=== PATIENT | male | born 1945 | race Caucasian/White ===

== ENCOUNTER → 2018-04-20 10:11 | Outpatient (CLI) | payer MEDICARE, SELFPAY | PROVIDERS: PCP Internal Medicine; Visit Provider Urology | DX: C61 Malignant neoplasm of prostate (principal) | CPT/HCPCS: 36415; 84153 ==

== ENCOUNTER → 2018-10-24 12:20 | Outpatient (CLI) | payer MEDICARE, SELFPAY ==
[2018-10-24 13:18] LABS: Prostate Specific Antigen 4.66 ng/mL (0.10-4.00)
== END ==
PROVIDERS: PCP Internal Medicine; Visit Provider Urology
DX: C61 Malignant neoplasm of prostate (principal)
CPT/HCPCS: 36415; 84153

== ENCOUNTER → 2019-05-03 11:50 | Outpatient (CLI) | payer MEDICARE, SELFPAY ==
[2019-05-03 14:29] LABS: Prostate Specific Antigen 8.59 ng/mL (0.10-4.00)
== END ==
PROVIDERS: PCP Internal Medicine; Visit Provider Urology
DX: C61 Malignant neoplasm of prostate (principal)
CPT/HCPCS: 36415; 84153

== ENCOUNTER → 2019-08-17 09:59 | Outpatient (CLI) | payer MEDICARE, SELFPAY ==
[2019-08-17 11:38] LABS: Prostate Specific Antigen 7.05 ng/mL (0.10-4.00)
== END ==
PROVIDERS: Family Provider Internal Medicine; PCP Internal Medicine; Visit Provider Urology
DX: C61 Malignant neoplasm of prostate (principal)
CPT/HCPCS: 36415; 84153

== ENCOUNTER → 2020-10-16 19:21 | Outpatient (ROUT) | payer MEDICARE, SELFPAY ==
[2020-10-16 19:45] LABS: Aspartate Aminotransferase 34 IU/L (17-59); BUN Creatinine Ratio 12.8 (6-22); Blood Urea Nitrogen 14 mg/dL (9-20); Calcium 9.6 mg/dL (8.4-10.2); Carbon Dioxide 27 mmol/L (22-32); Chloride 106 mmol/L (98-107); Cholesterol 165 mg/dL (140-199); Estimated Glomerular Filt Rate > 60.0 mL/min (>60); Glucose 115 mg/dL (80-110); HDL Cholesterol 44 mg/dL (40-60); HEMOLYSIS 16 (0-50); LDL Cholesterol Calculated 84 mg/dL (<100); Potassium 4.5 mmol/L (3.4-5.1); Sodium 137 mmol/L (137-145); Triglycerides 183 mg/dL (35-150)
[2020-10-16 19:47] LABS: Hemoglobin A1C% w Est Avg Glu 6.1 % (4.0-6.0)
== END ==
PROVIDERS: Family Provider Internal Medicine; PCP Internal Medicine; Visit Provider Internal Medicine
DX: R73.01 Impaired fasting glucose (principal)
CPT/HCPCS: 80048; 80061; 83036; 84450

== ENCOUNTER → 2022-01-18 10:55 | Outpatient (CLI) | payer MEDICARE, SELFPAY ==
[2022-01-18 13:00] LABS: Hematocrit 42.6 % (41-53); Hemoglobin 15.1 g/dL (13.5-17.5); Mean Corpuscular HGB Conc 35.4 % (30-36); Mean Corpuscular Hemoglobin 34.2 PG (26-34); Mean Corpuscular Volume 96.8 fL (80-100); Platelet Count 208 X10^3/uL (150-400); Red Cell Distribution Width 12.9 % (11.6-14.8); White Blood Cell Count 6.6 X10^3/uL (4.5-11.0)
[2022-01-18 13:47] LABS: HEMOLYSIS < 15 (0-50); Potassium 4.3 mmol/L (3.4-5.1)
[2022-01-18 13:48] LABS: Alanine Aminotransferase 22 IU/L (<50); Albumin 4.1 g/dL (3.5-5.0); Albumin Globulin Ratio 1.4 (1.0-2.8); Alkaline Phosphatase 74 U/L (38-126); Aspartate Aminotransferase 33 IU/L (17-59); BUN Creatinine Ratio 12.7 (6-22); Bilirubin Total 0.5 mg/dL (0.2-1.3); Blood Urea Nitrogen 14 mg/dL (9-20); Calcium 8.9 mg/dL (8.4-10.2); Carbon Dioxide 26 mmol/L (22-32); Chloride 106 mmol/L (98-107); Cholesterol 164 mg/dL (140-199); Estimated Glomerular Filt Rate > 60 mL/min (>60); Glucose 87 mg/dL (80-110); HDL Cholesterol 40 mg/dL (40-60); LDL Cholesterol Calculated 93 mg/dL (<100); Sodium 137 mmol/L (137-145); Total Protein 7.1 g/dL (6.3-8.2); Triglycerides 154 mg/dL (35-150)
[2022-01-18 14:12] LABS: TSH w/ Reflex to FT4 1.48 uIU/mL (0.47-4.68)
== END ==
PROVIDERS: Family Provider Internal Medicine; PCP Internal Medicine; Referring Provider Internal Medicine; Visit Provider Internal Medicine
DX: E78.2 Mixed hyperlipidemia (principal); I10 Essential (primary) hypertension
CPT/HCPCS: 36415; 80053; 80061; 84443; 85027

== ENCOUNTER → 2022-05-08 10:02 | Outpatient (CLI) | payer MEDICARE, SELFPAY ==
[2022-05-08 10:58] LABS: COVID19 -Nasal RAPID Negative (Negative)
== END ==
PROVIDERS: Family Provider Internal Medicine; PCP Internal Medicine; Visit Provider Surgery
DX: Z20.822 Contact with and (suspected) exposure to COVID-19 (principal); Z01.812 Encounter for preprocedural laboratory examination
CPT/HCPCS: 87635; C9803

== ENCOUNTER 2022-05-09 06:40 | Day surgery (SDC) | payer MEDICARE, SELFPAY ==
--- NOTE | 2022-05-09 | PATH_ITS ---
[facility] Accession Number: [id number] . 01 Material submitted: . colon - DESCENDING COLON POLYP . 01 Diagnosis: Descending Colon Polyp, Biopsy: Colonic mucosa with benign lymphoid aggregate. MRV 05/15/2022 1327 Local . 01 Electronically signed: . Selam Matthews MD, Pathologist NPI- [id number] . 01 Gross description: . DESCENDING COLON POLYP: Received in formalin are 4 fragment(s) of [place], soft tissue measuring 0.1 x 0.1 x 0.1 cm to 0.3 x 0.2 x 0.1 cm submitted entirely in 1 cassette(s) /ENZO 05/14/2022 1851 Local . 01 Pathologist provided ICD-10: K63.89, Z12.11 . 01 CPT . 581739 Specimen Comment: A courtesy copy of this report has been sent to [phone] Performed at: 01 [facility] [address] [place] [address] [address] [facility], [place], [place] [id number] MD Taurus Sheffield MD Phone: [phone]
[2022-05-09 07:01] VITALS: BMI 27642.3
[2022-05-09 07:06] VITALS: BP 125/87; PULSE 80; RESP 20; TEMP 37.3; O2SAT 95
[2022-05-09] MEDS: LACTATED RINGERS 1,000 ML 42 ML IV (07:20)
--- NOTE | 2022-05-09 07:47 | PM.HP.1 ---
History of Present Illness History of Present Illness Date Patient Seen: 05/09/22 Time Patient Seen: 07:47 Chief complaint: [facility] [place] Narrative: Danial is here for his colonoscopy. No significant changes since I saw him in February. Please see that office note for details. To summarize, he is about 10 years out from his last colonoscopy. Patient History Medical History Advanced directives, counseling/discussion Allergies (~1959) Chicken pox (~1952) Depression, major, recurrent Elevated PSA Essential hypertension GERD without esophagitis (~1967) Hearing loss History of urinary incontinence (~2020) Measles (~1952) Medicare annual wellness visit, initial Mixed hyperlipidemia Mumps (~1956) Obesity (BMI 30.0-34.9) Prostate cancer (~2016) Screening for colon cancer Surgical History Anesthesia History of cholecystectomy (~2004) History of hernia repair (~1958) History of prostatectomy (~05/2020) Family & Social History Family History Mother Alzheimer's disease Social History: household members significant other Tobacco & Substance use: Smoking Status Never smoker alcohol intake current alcohol intake frequency 0-2 drinks per day Substance Use Type does not use Meds Home Medications and Allergies Home Medications Medication Instructions Recorded Confirmed Type bupropion HCl 100 mg tablet,12 hr 100 mg PO BID #180 ea 01/18/22 05/09/22 Rx sustained-release losartan 50 mg tablet 50 mg PO DAILY #90 tabs 01/18/22 05/09/22 Rx sodium sul 1.479 gram-potas ch See Rx Instructions PO PER PKG DIR 01/30/22 05/09/22 Rx 0.188 gram-magnes sul 0.225 gram #24 tabs tablet (Sutab) peg 3350-electrolytes 236 240 ml PO Q10M #4,000 mL 04/25/22 05/09/22 Rx gram-22.74 gram-6.74 gram-5.86 gram solution (Golytely) lansoprazole 15 mg capsule,delayed 20 mg PO DAILY 05/09/22 05/09/22 History release pravastatin 20 mg tablet 10 mg PO DAILY 05/09/22 05/09/22 History Allergies Allergy/AdvReac Type Severity Reaction Status Date / Time No Known Drug Allergies Allergy Verified 05/09/22 06:53 Exam Vital Signs (past 8 hours): - 05/09/22 07:06 Temperature 99.2 F Pulse Rate 80 Respiratory Rate 20 Blood Pressure 125/87 Pulse Oximetry 95 Oxygen Delivery Method Room Air Oxygen Delivery Method Room Air Const General: healthy appearing Assessment & Plan Assessment and plan (1) Screening for colon cancer: Status: Acute Plan We reviewed the risks and benefits of colonoscopy for colon cancer screening and he would like to proceed. Time Spent With Patient Critical Care time: I spent a total of [] minutes of critical care time on this patient's care today; this time is exclusive of procedural time.
[2022-05-09] MEDS: MIDAZOLAM 5 MG/5 ML VIAL IV (08:02)
[2022-05-09] MEDS: fentaNYL 100 MCG/2 ML INJ 125 MCG IV (08:02)
--- NOTE | 2022-05-09 08:20 | PM.OP.COLON ---
Operative Date/Time/Diagnoses Date of procedure: 05/09/22 Time of procedure: 08:20 Pre-op diagnosis: Colon cancer screening Post-op diagnosis: same Procedure & Clinicians Study performed: Colonoscopy Same procedure as scheduled: Yes Surgeon: Nii Ruelas Procedure Notes Procedure in detail: Surgeon: Nii Ruelas MD Procedure: The patient was brought to the endoscopy suite, placed in left lateral decubitus position. The patient was connected to monitoring devices. A time-out was performed. Sedation was administered. Once the patient was adequately sedated, a digital rectal exam was performed and was normal. The scope was then inserted and advanced to the cecum where the appendiceal orifice was identified and photographed. The scope was then slowly withdrawn over greater than 6 minutes. The mucosa was thoroughly inspected. There was a small 5 mm polyp in the descending colon removed with a cold snare. There were scattered sigmoid diverticula. The scope was retroflexed in the rectum. There were some mild internal hemorrhoids. The scope was straightened and removed. The patient was awakened and brought to recovery. Versed: 5 mg Fentanyl: 125 mcg EBL: 5 mL Findings: Scattered diverticulosis and a 5 mm descending colon polyp Scope withdrawal time: 14 Sedation minutes: 24 Post-procedure Disposition: PACU
[2022-05-09 08:23] VITALS: BP 118/77; PULSE 69; RESP 16; TEMP 37.1
[2022-05-09 08:28] VITALS: BP 126/84; PULSE 74; RESP 14; O2SAT 93
[2022-05-09 08:33] VITALS: BP 126/84; PULSE 72; RESP 12; O2SAT 92
[2022-05-09 08:55] VITALS: BP 128/84; PULSE 71; RESP 14; TEMP 37.1; O2SAT 92
== END 2022-05-09 08:52 | disposition home or self-care (01) ==
PROVIDERS: Family Provider Internal Medicine; PCP Internal Medicine; Referring Provider Surgery; Visit Provider Surgery
PROC: 0DJD8ZZ Inspection of Lower Intestinal Tract, Via Natural or Artificial Opening Endoscopic (ICD-10-PCS; CPT 45378; principal; 2022-05-09 07:45)
DX: Z12.11 Encounter for screening for malignant neoplasm of colon (principal); K57.30 Diverticulosis of large intestine without perforation or abscess without bleeding; K64.8 Other hemorrhoids
CPT/HCPCS: 45385; 99152; 99153; J2250; J3010

== ENCOUNTER → 2022-08-26 10:55 | Outpatient (CLI) | payer MEDICARE, SELFPAY ==
[2022-08-26 13:30] LABS: COVID19 -Nasal RAPID Negative (Negative)
== END ==
PROVIDERS: Family Provider Internal Medicine; PCP Internal Medicine; Visit Provider Surgery
DX: Z20.822 Contact with and (suspected) exposure to COVID-19 (principal); Z01.812 Encounter for preprocedural laboratory examination
CPT/HCPCS: 87635; C9803

== ENCOUNTER 2022-08-27 13:59 | Day surgery (SDC) | payer MEDICARE, SELFPAY ==
[2022-08-26 07:38] VITALS: BMI 29.8
[2022-08-27] VITALS (11 sets, daily range): BP systolic 123–190; BP diastolic 76–94; PULSE 74–94; RESP 14–18; TEMP 36.2–36.7; O2SAT 90–97; BMI 29.8
[2022-08-27] MEDS: LACTATED RINGERS 1,000 ML 84 ML IV ×2 (14:48→18:52)
--- NOTE | 2022-08-27 17:06 | PM.PREOP ---
Pre-operative Note COVID-19 COVID-19 status: Negative Result date/Date tested (Pos, Neg/Pending): 08/26/22 Interval Note History & Physical reviewed/Exam performed by Physician: Yes Changes to H&P: No ASA Class (for procedural sedation): II
[2022-08-27] MEDS: CEFAZOLIN 2 GM/100 ML PREMIX 100 ML IV (17:42)
[2022-08-27] MEDS: BUPIVACAINE 0.5% W/ EPI (PF) 30 ML VIAL INJ (17:48)
--- NOTE | 2022-08-27 17:51 | SUR.OPER ---
Supine on padded OR bed, head on pillow, arms secured on padded arm boards at <90 degrees abduction, legs uncrossed, safety belt at thigh, tape over blanket over lower legs. Pt positioned per direction and supervision of Dr Small.
--- NOTE | 2022-08-27 19:19 | PM.OP.1 ---
Operative Date/Time/Diagnoses Date of procedure: 08/27/22 Time of procedure: 19:19 Pre-op diagnosis: Incisional hernia Post-op diagnosis: same Procedure & Clinicians Procedure: Open ventral incisional hernia repair with mesh Same procedure as scheduled: Yes Surgeon: Nii Ruelas Anesthesia Type: General Operative Notes Procedure in detail: Ancef was administered. The patient was brought to the operating room, placed on the table in the supine position and general endotracheal anesthesia was induced. The abdomen was prepped and draped in the usual fashion. A time-out was performed. A 6 cm incision was made through the supraumbilical surgical scar. Dissection was carried down to the hernia sac which was opened. The hernia sac was freed from the fascial ring and the peritoneal cavity was entered. The defect was about 4 cm x 3 cm. There was omentum within the sac and a portion was resected to allow the remainder to be completely reduced into the abdomen. No bowel was involved. The fascia was then closed transversely with about 8 interrupted 0 Ethibond sutures. The subcutaneous adipose tissue was cleared off of the anterior sheath circumferentially about 2 cm in each direction. A piece of polypropylene mesh was trimmed to fit over the fascial closure and secured to the fascia with Tisseel. Once the Tisseel was dried the subcutaneous adipose tissue was closed with interrupted 3-0 Vicryl sutures. The skin was closed with multiple interrupted 3-0 Vicryl dermal sutures followed by a running 4 Monocryl subcuticular closure. Steri-Strips were applied and an abdominal binder was applied. EBL: 30 mL Post-operative Disposition: PACU
[2022-08-27] MEDS: HYDROCODONE/ACET 5/325 TABLET 1 TAB PO (20:11)
[2022-08-27] MEDS: buPROPion SR 100 MG TAB PO (21:55)
[2022-08-27] MEDS: IBUPROFEN 400 MG TABLET PO (21:56)
[2022-08-28] VITALS: BP 135/83; PULSE 80; RESP 18; TEMP 36.3; O2SAT 92
[2022-08-28 04:00] VITALS: BP 117/81; PULSE 93; RESP 17; TEMP 36.8; O2SAT 94
--- NOTE | 2022-08-28 08:57 | P.DS_ITS ---
History of Present Illness History of Present Illness Chief complaint: [facility] [place] [facility] [place] Discharge Providers Provider Discharge Date: 08/28/22 Primary care physician: aDrion Hardin MD Consults: 08/27/22 20:37 Consult to Discharge Planning Routine Comment: Discharge provider: Nii Ruelas MD Summary Hospital Course Discharge Diagnosis: Hernia Hospital Course: Danial underwent a scheduled ventral hernia repair on 08/27/2022. Because surgery finished quite late at night and he was not feeling very well in the recovery room he was admitted to the floor overnight. By morning he was tolerating a diet and had no pain or other complaints. He was discharged home. Exam Vital Signs (past 8 hours): - 08/28/22 04:00 Temperature 98.2 F Pulse Rate 93 H Respiratory Rate 17 Blood Pressure 117/81 Pulse Oximetry 94 Oxygen Delivery Method Nasal Cannula Oxygen Flow Rate 2 PFSH Medical History (Updated 08/26/22 @ 07:43 by Josselin Palma RN) Abnormal tympanic membrane Advanced directives, counseling/discussion Allergies (~1959) Chicken pox (~1952) Depression, major, recurrent Elevated PSA Essential hypertension GERD without esophagitis (~1967) Headache Hearing loss Hearing loss, left History of urinary incontinence (~2020) Measles (~1952) Medicare annual wellness visit, initial Mixed hyperlipidemia Mumps (~1956) Obesity (BMI 30.0-34.9) Prostate cancer (~2016) Screening for colon cancer Surgical History Anesthesia History of cholecystectomy (~2004) History of hernia repair (~1958) History of prostatectomy (~05/2020) Family History Mother Alzheimer's disease Social History household members: significant other Smoking Status: Never smoker alcohol intake: current Discharge Plan Discharge Plan Patient Disposition: Home Provider Discharge Comment: No lifting greater than 20 lb for 2 weeks. Okay to remove the abdominal binder tonight. The gauze can be discarded. There are Steri-Strips over the incision which will start to fall off in a week or 2 or can be peeled off. Okay to shower with the Steri-Strips tonight. Discharge orders & Medications Discharge Orders: Discharge (Order); Ordered 08/28/22 Ordered By: Nii Ruelas Prescriptions: Continued losartan 50 mg tablet 50 mg PO DAILY Qty: 90 3RF bupropion HCl 100 mg tablet sustained-release 12 hr 100 mg PO BID Qty: 180 3RF pravastatin 20 mg tablet 10 mg PO DAILY lansoprazole 15 mg Capsule,Delayed Release(Dr/Ec) 20 mg PO DAILY Follow up/Referrals: Darion Hardin MD [Primary Care Provider] - Discharge Data Primary Care Provider: Darion Hardin V Attending Provider: Nii Ruelas Quality VTE Deep Vein Thrombosis/Pulmonary Embolism Present on Admission: No
--- NOTE | 2022-08-28 09:29 | CM.DANOTE ---
DCP: Case received, EMR reviewed and met with patient. Partner, Daiana Alcala, was at bedside. Introduced self and role. Was able to obtain information some history from patient. DCP assessment completed with information currently available. Patient is a 76 year old male who admitted yesterday to the care of the surgical team. PCP: Dr. Hardin. Payer: confirmed: Medicare/[employer]. Patient came to the hospital via private vehicle for a surgical procedure. Patient had open ventral incisional hernia repair. Patient has history of incisional hernia. Met with patient and partner in the room. He was sitting up in bed. He is alert and oriented, independent at his baseline. He and his partner reside in [place], he is retired. P: Patient has discharge orders for home with no needs. Francine Back RN/Chargemaster Analyst Discharge Planning/Care Management CM Discharge Assessment Start: 08/28/22 09:25 Freq: Status: Discharge Protocol: Document 08/28/22 09:25 (Rec: 08/28/22 09:29 [id number]) Discharge Planning Assessment Assigned Marketing Sales Manager Francine Back RN/Case M Advance Directives? Yes Advance Directives on File No History Provided By Patient,Medical Record Prior Living Arrangements House Household Members significant other Type of transporation used prior to Drives own vehicle admit Independent with ADL's Yes Is patient alert and oriented? Yes Caregiver for Another No Barriers to Discharge No Discharge Plan Home Transportation Arrangement Spouse Referrals Initiated None needed Whiteboard Updated in Patient Room with Yes name and ext. # of Marketing Sales Manager Review Status In Process Next Review Type Continued Stay Review Pre-Anesthesia Assessment Start: 08/26/22 07:38 Freq: Status: Discharge Protocol: Document 08/26/22 07:38 CAB (Rec: 08/26/22 07:44 CAB [id number]) Pre-Anesthesia Assessment Patient Information Reviewed Via Chart Review Comment COVID screen @ 08/26/22 Primary Care Provider Darion Hardin Seen Specialist in Last 12 Months Yes Specialist Seen General surgeon Primary Language German Preferred Language German Marine Electrician Apprentice Required No Height 6 ft Weight 220 lb Body Mass Index (BMI) 29.8 Hearing Ability Hearing Impaired Visual Assist Glasses Hx Anesthesia Reactions No Hx Family Anesthesia Reaction No Hx Malignant Hyperthermia No Hx Blood Transfusions No Hx Blood Transfusion Reaction No Anesthesia Review Requested No Reel Hooker No alcohol intake current alcohol intake frequency 0-2 drinks per day Smoking Status Never smoker Substance Use Type does not use Patient is completely paralyzed or No completely immobile Mental Status Oriented to own ability Is patient on oxygen? No Does patient have VERNON/SOB No Hx Sleep Apnea No CPAP/BIPAP use not prescribed Currently Taking a Beta Fermin No Hx Chest Pain No Hx SOB No Hx Syncope or Dizziness No Anti-Coagulant Therapy No Cardiac Testing No Hx Pacemaker/ICD No Pacemaker Rep Required? No Cardiac Clearance Received Not Applicable Gastrointestinal Symptoms Reflux Bladder Pattern Incontinent Urinary Catheter Present No Hx Urinary Self Catheterization No Diabetes No Presence of External or Internal Medical No Devices Received a COVID vaccine? Yes Received all doses? Yes Marital Status Life Partner Lives With significant other Patient Discharge Plan Description Return Home Advance Directives? Yes Power of Clay Burner Yes Power of Clay Burner Name Radha Jessica Power of Clay Burner
== END 2022-08-28 09:27 | disposition home or self-care (01) ==
LOC: OR 14:01 → AC 20:56
PROVIDERS: Family Provider Internal Medicine; PCP Internal Medicine; Referring Provider Surgery; Visit Provider Surgery
PROC: (CPT 49593; principal; 2022-08-27 15:15)
DX: K43.2 Incisional hernia without obstruction or gangrene (principal)
CPT/HCPCS: 49593; 94760; J0690; J1100; J2250; J2405; J2704; J3010

== ENCOUNTER → 2022-09-20 09:20 | Outpatient (CLI) | payer MEDICARE, SELFPAY ==
[2022-08-27 20:58] VITALS: BMI 29.8
[2022-09-20 10:18] LABS: BUN Creatinine Ratio 13.1 (6-22); Blood Urea Nitrogen 13 mg/dL (9-20); Carbon Dioxide 27 mmol/L (22-32); Chloride 104 mmol/L (98-107); Estimated Glomerular Filt Rate > 60 mL/min (>60); Glucose 95 mg/dL (80-110); HEMOLYSIS < 15 (0-50); Potassium 4.5 mmol/L (3.4-5.1); Sodium 139 mmol/L (137-145)
== END ==
PROVIDERS: Family Provider Internal Medicine; PCP Internal Medicine; Referring Provider Internal Medicine; Visit Provider Internal Medicine
DX: I10 Essential (primary) hypertension (principal)
CPT/HCPCS: 36415; 80048

== ENCOUNTER → 2023-01-20 13:18 | Outpatient (CLI) | payer MEDICARE, SELFPAY ==
[2022-08-27 20:58] VITALS: BMI 29.8
[2023-01-20 14:47] LABS: Aspartate Aminotransferase 38 IU/L (17-59); BUN Creatinine Ratio 12.2 (6-22); Blood Urea Nitrogen 14 mg/dL (9-20); Calcium 9.3 mg/dL (8.4-10.2); Carbon Dioxide 25 mmol/L (22-32); Chloride 104 mmol/L (98-107); Cholesterol 124 mg/dL (140-199); Estimated Glomerular Filt Rate > 60 mL/min (>60); Glucose 121 mg/dL (80-110); HDL Cholesterol 40 mg/dL (40-60); HEMOLYSIS < 15 (0-50); LDL Cholesterol Calculated 41 mg/dL (<100); Potassium 4.7 mmol/L (3.4-5.1); Sodium 138 mmol/L (137-145); Triglycerides 216 mg/dL (35-150)
== END ==
PROVIDERS: Family Provider Internal Medicine; PCP Internal Medicine; Referring Provider Internal Medicine; Visit Provider Internal Medicine
DX: E78.2 Mixed hyperlipidemia (principal); I10 Essential (primary) hypertension
CPT/HCPCS: 36415; 80048; 80061; 84450

== ENCOUNTER → 2023-02-19 10:37 | Outpatient (CLI) | payer MEDICARE, SELFPAY ==
[2022-08-27 20:58] VITALS: BMI 29.8
--- NOTE | 2023-02-19 10:38 | DI.MRI.S_ITS ---
PROCEDURE: MR AB PANCREATIC/MRCP PROTOCOL INDICATIONS: left hepatic duct dilation TECHNIQUE: Coronal HASTE through the abdomen, axial 2-D FLASH in- and [id number], and breath-hold T2 FSE with fat saturation through the biliary system and pancreas. Oblique coronal and axial thin-slice HASTE, radial thick-slab HASTE centered on the extrahepatic bile ducts. T1 vibe pre contrast, arterial, venous, delayed postcontrast images and restricted diffusion sequences. 20 cc ProHance IV contrast. COMPARISON: [facility], CT, CT ABDOMEN PELVIS WITH CONTRAST, 02/02/2023, 19:58. FINDINGS: Image quality: Excellent. Pancreas and biliary system: CBD measures 0.7 cm and is at the upper limits of normal. There is mild left intrahepatic bile duct dilatation similar to CT 02/02/2023. No filling defect is identified. No mass demonstrated. No restricted diffusion. Post cholecystectomy. No fluid collection. No pancreatic ductal dilatation. No cystic lesion. No peripancreatic fluid collection. Other solid organs: Liver is normal in size. Spleen is normal in size. No adrenal nodules. Both kidneys are normal in size, without hydronephrosis. Small T2 hyperintense cyst in the right kidney. Mid left kidney posterior medial kidney exophytic intrinsic T1 hyperintense cyst measuring 0.9 cm. No suspicious enhancement or restricted diffusion. This is consistent with a proteinaceous/hemorrhagic cyst. Nodes and vessels: No retroperitoneal or mesenteric adenopathy by size criteria. Aorta and inferior vena cava are normal in size. Bowel and peritoneum: Unenhanced bowel loops are normal in caliber. No free fluid. Lung bases: No basal pleural effusions. Heart size is normal. Hiatal hernia. Bones and soft tissues: No ventral hernias. Bone marrow is of normal overall signal. Fluid collection at the left buttocks subcutaneous. Trace fluid superficial to the umbilicus, decreased. IMPRESSION: 1. Similar left intrahepatic biliary ductal dilatation. No mass identified. No suspicious enhancement or restricted diffusion. No filling defects seen. Recommend clinical correlation. If indicated MRCP may be helpful for further evaluation. 2. Post cholecystectomy. No biliary ductal dilatation. 3. Small ventral abdominal wall fluid collection. Left buttocks subcutaneous fluid collection. 4. Hiatal hernia. Dictated by: Zack Silverio M.D. on 02/19/2023 at 16:11 Approved by: Zack Silverio M.D. on 02/19/2023 at 16:22
== END ==
PROVIDERS: Family Provider Internal Medicine; PCP Internal Medicine; Referring Provider Internal Medicine; Visit Provider Internal Medicine
DX: S36.119A Unspecified injury of liver, initial encounter (principal); K83.8 Other specified diseases of biliary tract; K44.9 Diaphragmatic hernia without obstruction or gangrene; Z90.49 Acquired absence of other specified parts of digestive tract
CPT/HCPCS: 74183

== ENCOUNTER → 2024-02-03 07:58 | Outpatient (CLI) | payer MEDICARE, SELFPAY ==
[2022-08-27 20:58] VITALS: BMI 29.8
[2024-02-03 08:58] LABS: Hemoglobin A1C% w Est Avg Glu 5.6 % (4.0-6.0)
[2024-02-03 09:26] LABS: Aspartate Aminotransferase 50 IU/L (17-59); BUN Creatinine Ratio 19.2 (6-22); Blood Urea Nitrogen 23 mg/dL (9-20); Calcium 9.1 mg/dL (8.4-10.2); Carbon Dioxide 26 mmol/L (22-32); Chloride 105 mmol/L (98-107); Cholesterol 142 mg/dL (140-199); Estimated Glomerular Filt Rate > 60 mL/min (>60); Glucose 109 mg/dL (80-110); HDL Cholesterol 42 mg/dL (40-60); HEMOLYSIS < 15 (0-50); LDL Cholesterol Calculated 78 mg/dL (<100); Potassium 4.4 mmol/L (3.4-5.1); Sodium 137 mmol/L (137-145); Triglycerides 110 mg/dL (35-150)
== END ==
PROVIDERS: Family Provider Internal Medicine; PCP Internal Medicine; Referring Provider Internal Medicine; Visit Provider Internal Medicine
DX: I10 Essential (primary) hypertension (principal); R73.01 Impaired fasting glucose; E78.2 Mixed hyperlipidemia
CPT/HCPCS: 36415; 80048; 80061; 83036; 84450

== ENCOUNTER → 2024-07-20 13:44 | Outpatient (CLI) | payer MEDICARE, SELFPAY ==
[2022-08-27 20:58] VITALS: BMI 29.8
--- NOTE | 2024-07-20 13:46 | DI.RAD.S_ITS ---
PROCEDURE: XR CHEST 2V INDICATIONS: tx for pneumonia TECHNIQUE: 2 views of the chest were acquired. COMPARISON: None. FINDINGS: Surgical changes and devices: None. Lungs and pleura: Lungs are clear. No pleural effusions or pneumothorax. Mediastinum: Mediastinal contours are normal. Heart size is normal. Small hiatal hernia noted. Bones and chest wall: No suspicious bony abnormalities. Soft tissues appear unremarkable. IMPRESSION: Small hiatal hernia. No acute process. Dictated by: Raoul Devine M.D. on 07/20/2024 at 15:17 Approved by: Raoul Devine M.D. on 07/20/2024 at 15:19
== END ==
PROVIDERS: Family Provider Internal Medicine; PCP Internal Medicine; Referring Provider Internal Medicine; Visit Provider Internal Medicine
DX: K44.9 Diaphragmatic hernia without obstruction or gangrene (principal); Z87.01 Personal history of pneumonia (recurrent)
CPT/HCPCS: 71046

== ENCOUNTER → 2024-07-27 14:29 | Outpatient (CLI) | payer MEDICARE, SELFPAY ==
[2022-08-27 20:58] VITALS: BMI 29.8
[2024-07-27 15:47] LABS: Prostate Specific Antigen Scrn < 0.064 ng/mL (0.1-4.0)
== END ==
PROVIDERS: Family Provider Internal Medicine; PCP Internal Medicine; Referring Provider Physician Assistant; Visit Provider Physician Assistant
DX: Z12.5 Encounter for screening for malignant neoplasm of prostate (principal); C61 Malignant neoplasm of prostate
CPT/HCPCS: 36415; G0103

== ENCOUNTER → 2024-10-22 10:59 | Outpatient (CLI) | payer MEDICARE, SELFPAY ==
[2022-08-27 20:58] VITALS: BMI 29.8
[2024-10-23 09:09] LABS: Rubeola Measles IgG > 300.0 AU/mL (Immune >16.4)
[2024-10-23 14:44] LABS: Rubella Antibody IgG > 350.0 IU/mL (>15)
== END ==
PROVIDERS: Family Provider Internal Medicine; PCP Internal Medicine; Referring Provider Internal Medicine; Visit Provider Internal Medicine
DX: Z01.84 Encounter for antibody response examination (principal)
CPT/HCPCS: 36415; 86735; 86762; 86765

== ENCOUNTER → 2025-01-24 10:28 | Outpatient (CLI) | payer MEDICARE, SELFPAY ==
[2022-08-27 20:58] VITALS: BMI 29.8
[2025-01-24 11:03] LABS: Hemoglobin A1C% w Est Avg Glu 5.5 % (4.0-6.0)
[2025-01-24 11:12] LABS: Hematocrit 42.5 % (41-53); Hemoglobin 14.7 g/dL (13.5-17.5); Mean Corpuscular HGB Conc 34.5 % (30-36); Mean Corpuscular Hemoglobin 34.9 PG (26-34); Mean Corpuscular Volume 100.9 fL (80-100); Platelet Count 186 X10^3/uL (150-400); Red Blood Cell Count 4.21 X10^6/uL (4.5-5.9); White Blood Cell Count 6.4 X10^3/uL (4.5-11.0)
[2025-01-24 11:14] LABS: Aspartate Aminotransferase 53 IU/L (17-59); Blood Urea Nitrogen 20 mg/dL (9-20); Calcium 9.4 mg/dL (8.4-10.2); Carbon Dioxide 26 mmol/L (22-32); Chloride 104 mmol/L (98-107); Cholesterol 141 mg/dL (140-199); Estimated Glomerular Filt Rate > 60 mL/min (>60); Glucose 97 mg/dL (70-99); HDL Cholesterol 45 mg/dL (40-60); HEMOLYSIS < 15 (0-50); LDL Cholesterol Calculated 69 mg/dL (<100); Potassium 4.6 mmol/L (3.4-5.1); Sodium 137 mmol/L (137-145); Triglycerides 137 mg/dL (35-150)
[2025-01-24 11:45] LABS: Prostate Specific Antigen < 0.064 ng/mL (0.10-4.00)
== END ==
PROVIDERS: Family Provider Internal Medicine; PCP Internal Medicine; Referring Provider Internal Medicine; Visit Provider Internal Medicine
DX: E78.2 Mixed hyperlipidemia (principal); R73.01 Impaired fasting glucose; C61 Malignant neoplasm of prostate; I10 Essential (primary) hypertension
CPT/HCPCS: 36415; 80048; 80061; 83036; 84153; 84443; 84450; 85027

== ENCOUNTER → 2025-02-01 14:16 | Outpatient (CLI) | payer MEDICARE, SELFPAY ==
[2022-08-27 20:58] VITALS: BMI 29.8
[2025-02-01 16:24] LABS: Folate 11.8 ng/mL (2.76-20.0); Vitamin B12 Reflex MMA if <400 259 pg/mL (239-931)
== END ==
PROVIDERS: Family Provider Internal Medicine; PCP Internal Medicine; Referring Provider Internal Medicine; Visit Provider Internal Medicine
DX: E53.8 Deficiency of other specified B group vitamins (principal)
CPT/HCPCS: 36415; 82607; 82746; 83921

== ENCOUNTER → 2025-07-06 16:11 | Outpatient (CLI) | payer MEDICARE, SELFPAY ==
[2022-08-27 20:58] VITALS: BMI 29.8
[2025-07-06 17:30] LABS: Hematocrit 42.5 % (41-53); Hemoglobin 15.0 g/dL (13.5-17.5); Mean Corpuscular HGB Conc 35.2 % (30-36); Mean Corpuscular Hemoglobin 34.7 PG (26-34); Mean Corpuscular Volume 98.5 fL (80-100); Platelet Count 235 X10^3/uL (150-400)
[2025-07-06 17:48] LABS: Alanine Aminotransferase 23 IU/L (<50); Albumin 4.4 g/dL (3.5-5.0); Albumin Globulin Ratio 1.5 (1.0-2.8); Alkaline Phosphatase 96 U/L (38-126); Blood Urea Nitrogen 20 mg/dL (9-20); Calcium 9.6 mg/dL (8.4-10.2); Carbon Dioxide 25 mmol/L (22-32); Chloride 102 mmol/L (98-107); Estimated Glomerular Filt Rate 56 mL/min (>60); Globulin 3.0 g/dL (1.7-4.1); Glucose 104 mg/dL (70-99); HEMOLYSIS < 15 (0-50); Potassium 4.2 mmol/L (3.4-5.1); Sodium 137 mmol/L (137-145); Total Protein 7.4 g/dL (6.3-8.2)
[2025-07-06 18:19] LABS: TSH w/ Reflex to FT4 2.66 uIU/mL (0.47-4.68)
[2025-07-06 18:23] LABS: Prostate Specific Antigen < 0.064 ng/mL (0.10-4.00)
== END ==
PROVIDERS: Family Provider Internal Medicine; PCP Internal Medicine; Referring Provider Internal Medicine; Visit Provider Internal Medicine
DX: E78.2 Mixed hyperlipidemia (principal); C61 Malignant neoplasm of prostate; I10 Essential (primary) hypertension
CPT/HCPCS: 80053; 84153; 84443; 85027